=== PATIENT | male | born 1995 | race Caucasian/White ===

== ENCOUNTER 2018-09-07 00:24 | Emergency (ER) | payer SELFPAY ==
[~2018-09-07] VITALS: Ht 175.3 cm; Wt 77.3 kg
[2018-09-07 00:37] VITALS: BP 144/94; TEMP 98.3
[2018-09-07 01:20] VITALS: PULSE 92
== END 2018-09-07 01:23 | disposition home or self-care (01) ==
LOC: COL.ER 00:24
DX: S61.211A Laceration without foreign body of left index finger without damage to nail, initial encounter (principal); Z23 Encounter for immunization; W26.0XXA Contact with knife, initial encounter

== ENCOUNTER → 2019-11-01 | Outpatient (CLI) | payer OTHER | LOC: COL.RAD 09:13 | DX: N50.89 Other specified disorders of the male genital organs (principal) ==

== ENCOUNTER → 2019-11-11 | Outpatient (CLI) | payer OTHER | LOC: COL.RAD 07:16 | DX: I86.1 Scrotal varices (principal) ==